=== PATIENT | female | born 2000 | race Caucasian/White ===

== ENCOUNTER 2023-10-09 18:40 | Emergency (ER) | payer OTHER ==
[2023-10-09] MEDS ORDERED: NA CHLORIDE 0.9% 1,000 ML ONE (19:16)
[2023-10-09] MEDS ORDERED: ACETAMINOPHEN 500 MG TAB ONE (19:16)
[2023-10-09 19:19] LABS: Absolute Eosinophils 0.1 K/uL (0-0.5); Absolute Lymphocytes (CBC) 1.9 K/uL (0.7-4.9); Absolute Monocytes 0.7 K/uL (0.1-1.3); Absolute Neutrophil 6.4 K/uL (1.8-8.0); Basophils % 0.5 % (0-1.3); Eosinophils % 1.4 % (0-4.4); Hemoglobin 11.9 g/dL (12.0-15.0); Lymphocytes % 21.2 % (15.3-44.8); MCH 31.2 pg (27.0-35.0); MCHC 35.1 g/dL (32.0-36.0); MCV 89.1 fL (80-100); MPV 9.5 fL (7.6-11.3); Monocytes % 7.6 % (3.3-12.3); Neutrophils % 69.3 % (41.7-73.7); Platelets 199 thou/uL (152-406); RBC Red Blood Cell Count 3.81 M/uL (3.86-4.86); Red Cell Distribution Width 13.6 % (12.1-15.2)
[2023-10-09 19:39] LABS: ALT/SGPT 17 U/L (13-56); Albumin/Globulin Ratio 0.7 (1.1-1.8); Alkaline Phosphatase 62 U/L (45-117); Anion Gap 10.3 mEq/L (5.0-15.0); BUN Blood Urea Nitrogen 14 mg/dL (7-18); Bicarbonate 22 mEq/L (21-32); Bilirubin Total 0.2 mg/dL (0.2-1.0); Globulin 4.1 g/dL (2.3-3.5); Glomerular Filtration Rate 129 ml/min (=/>90); Glucose Level 101 mg/dL (74-106); Potassium 3.3 mEq/L (3.5-5.1); Protein, Total 7.1 g/dL (6.4-8.2); Sodium Level 137 mEq/L (136-145)
[2023-10-09 19:40] LABS: AST/SGOT < 10 U/L (15-37)
[2023-10-09 20:04] LABS: Specific Gravity 1.027 (1.005-1.030); Urine Bacteria <20 /HPF (<20); Urine Bilirubin NEGATIVE (Negative); Urine Blood Negative (Negative); Urine Clarity Extremely Turbid (Clear); Urine Color Yellow (Yellow); Urine Culture Reflex Order NOT NEEDED; Urine Glucose NEGATIVE (Negative); Urine Ketones NEGATIVE (Negative); Urine Micro Reflex YN NO BILL MICROSCOPIC; Urine Mucus 3+ /HPF (None Seen); Urine Nitrite NEGATIVE (Negative); Urine Protein TRACE (Negative); Urine RBC <5 /HPF (None Seen); Urine Urobilinogen 1+ (Normal); Urine pH 7.5 (5.0-7.0)
[2023-10-09] MEDS ORDERED: ONDANSETRON 4 MG/2 ML VIAL ONE (21:00)
--- NOTE | 2023-10-09 21:43 | RAD REPORT ---
EXAM DESCRIPTION: US - OB Complete - 10/09/2023 9:31 pm CLINICAL HISTORY: back pain COMPARISON: No comparisons FINDINGS: A single breech presenting gestation is identified. Heart rate normal. heart rate me asured at 135 beats/minute. measurements are as follows: BPD:5.2 Centimeters 21 week 6 day HC:19.8 Centimeters 22 week 0 day AC:17.9 Centimeters 22 week 5 day HL:3.6 Centimeters 22 week 2 day FL:4 Centimeters 23 week 0 day The estimated gestational age (EGA) is 22 week 3 day with an YOEL of02/09/2024. Anterior placenta. No placenta previa. The amniotic fluid index is 10.3 cm, with largest pocket 3 cm. The maternal adnexa show no worrisome findings. IMPRESSION: 1. Single, breech gestation with an EGA of 22 week 3 day and an YOEL of the 02/09/2024. 2. Anterior placenta. No previa. 3. Amniotic fluid index is10.3, with largest pocket3 cm -- considered within normal limits.
--- NOTE | 2023-10-09 21:48 | EDPHYS ---
Physician Documentation [facility] Name: Elvira Kingsley Age: 23 yrs Sex: Female : 2000 Arrival Date: 10/09/2023 Time: 18:40 Bed 1 Private MD: ED Physician Drew Landeros HPI: 10/08 19:58 This 23 yrs old Female presents to ER via Ambulatory with complaints of 22 wks rt , Back Pain. 19:58 Patient presents to the ED with back pain. The patient is a G2, P1 at 22 weeks. Denies rt any uterine contractions but states that the back pain feels like contractions. Denies injury. Denies leakage of fluid, vaginal bleeding, urinary symptoms. Denies other acute complaints, symptoms are moderate in severity, no other aggravating or alleviating factors. 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 - Infectious Disease History:: Denies. - Social history:: Smoking status: Patient denies any tobacco usage or history of. - Family history:: not pertinent. ROS: 19:58 Constitutional: Negative for fever, chills, and weight loss, Cardiovascular: Negative rt for chest pain, palpitations, and edema, Respiratory: Negative for shortness of breath, cough, wheezing, and pleuritic chest pain, Abdomen/GI: Negative for abdominal pain, nausea, vomiting, diarrhea, and constipation, : Negative for injury, bleeding, discharge, and swelling, MS/Extremity: Negative for injury and deformity, Skin: Negative for injury, rash, and discoloration, 19:58 Back: Positive for pain at rest, pain with movement, Exam: 19:58 Constitutional: This is a well developed, well nourished patient who is awake, alert, rt and in no acute distress. Head/Face: Normocephalic, atraumatic. Chest/axilla: Normal chest wall appearance and motion. Nontender with no deformity. No lesions are appreciated. Cardiovascular: Regular rate and rhythm with a normal S1 and S2. No gallops, murmurs, or rubs. Normal PMI, no JVD. No pulse deficits. Respiratory: Lungs have equal breath sounds bilaterally, clear to auscultation and percussion. No rales, rhonchi or wheezes noted. No increased work of breathing, no retractions or nasal flaring. Skin: Warm, dry with normal turgor. Normal color with no rashes, no lesions, and no evidence of cellulitis. MS/ Extremity: Pulses equal, no cyanosis. Neurovascular intact. Full, normal range of motion. Neuro: Awake and alert, GCS 15, oriented to person, place, time, and situation. Cranial nerves II-XII grossly intact. Motor strength 5/5 in all extremities. Sensory grossly intact. Cerebellar exam normal. Normal gait. 19:58 Abdomen/GI: Abdomen is soft, nontender, nondistended, 19:58 Back: Mild tenderness to the lower lumbar paraspinal regions, no midline tenderness, no flank tenderness, Vital Signs: 18:48 BP 101 / 67; Pulse 77; Resp 18; Temp 98.6; Pulse Ox 98% ; Weight 73.94 kg; Height 5 ft. db 3 in. ; Pain 10/10; 19:25 BP 93 / 52; Pulse 60; Resp 18; Pulse Ox 99% on R/A; al5 20:51 BP 129 / 80; Pulse 75; Resp 18; Temp 98.6; Pulse Ox 99% ; Pain 7/10; bm8 22:01 BP 118 / 72; Pulse 69; Resp 16; Pulse Ox 100% on R/A; al5 18:48 Body Mass Index 28.87 (73.94 kg, 160.02 cm) db 18:48 Pain Scale: Adult db 20:51 Pain Scale: Adult bm8 Parish Coma Score: 20:51 Eye Response: spontaneous(4). Motor Response: obeys commands(6). Verbal Response: bm8 oriented(5). Total: 15. MDM: 18:54 Patient medically screened. rt 20:25 Data reviewed: vital signs. ED course: Patient signed up to the ER. Physician in brief ec2 arrives today for back pain and is 22 weeks . Plan is follow-up ultrasound. Likely discharge home. CBC reassuring, metabolic profile reassuring. Urine without bacteria . 10/08 19:02 Order name: CBC with Diff; Complete Time: 20:02 rt 10/08 19:02 Order name: CMP; Complete Time: 20: rt 10/08 19:02 Order name: UAM; Complete Time: 20:05 rt 10/08 19:02 Order name: US OB Complete; Complete Time: 21:47 rt Administered Medications: 19:24 Drug: NS 0.9% IV 1000 ml IV at 1 bolus Per protocol; 1000 mL bolus Route: IV; Rate: 1 al5 bolus; Site: right antecubital; 21:54 Follow up: Response: No adverse reaction; IV Status: Completed infusion; IV Intake: bm8 1000ml 19:24 Drug: Acetaminophen PO 1000 mg PO once Route: PO; al5 20:00 Follow up: Response: No adverse reaction; Pain is decreased al5 21:27 Drug: Ondansetron IVP 4 mg IVP once; over 2 minutes Route: IVP; Site: right antecubital;al5 21:27 Follow up: Response: No adverse reaction; Nausea is decreased al5 21:47 CANCELLED (Physician Discretion): [id number] mg PO once ec2 21:53 Drug: Cephalexin PO 500 mg PO once Route: PO; bm8 21:53 Follow up: Response: Medication Administered at Departure bm8 Disposition Summary: 10/09/23 21:47 Discharge Ordered Notes: Location: Home ec2 Condition: Stable ec2 Diagnosis - UTI/ Urinary tract infection, site not specified ec2 - Low back pain ec2 Followup: ec2 - With: Private Physician - When: - Reason: Re-evaluation by your physician Discharge Instructions: - Discharge Summary Sheet ec2 - Urinary Tract Infection, Adult, [id number] ec2 Forms: - Medication Reconciliation Form ec2 - Antibiotic Education ec2 - Prescription Opioid Use ec2 - Patient Portal Instructions ec2 - Leadership Thank You Letter ec2 - Work release form bm8 Prescriptions: - Cephalexin 500 mg Oral capsule - take 1 capsule ORAL route every 12 hours for 5 days; 10 capsule; Refills: 0, ec2 Product Selection Permitted Signatures: Dispatcher [employer] Deepali Marinelli, RN RN Kelechi Slade MD MD rt Drew Landeros MD MD ec2 Delon Argueta RN RN bm8 Pallavi Claudio RN RN al5 Corrections: (The following items were deleted from the chart) 21:47 21:47 Cephalexin PO 250 mg PO once ordered. ec2 ec2
--- NOTE | 2023-10-09 21:48 | ER ---
Nurse's Notes [facility] Name: Elvira Kingsley Age: 23 yrs Sex: Female : 2000 Arrival Date: 10/09/2023 Time: 18:40 Bed 1 Private MD: Diagnosis: UTI/ Urinary tract infection, site not specified;Low back pain Presentation: 10/08 18:48 Chief complaint: Patient states: 22 WEEKS STARTED WITH BACK PAIN LIKE db CONTRACTIONS X 30 MINUTES. . Coronavirus screen: Client denies travel out of the [place] in the last 14 days. At this time, the client does not indicate any symptoms associated with coronavirus-19. Ebola Screen: Patient negative for fever greater than or equal to 101.5 degrees Fahrenheit, and additional compatible Ebola Virus Disease symptoms Patient denies exposure to infectious person. Patient denies travel to an Ebola-affected area in the 21 days before illness onset. No symptoms or risks identified at this time. Initial Sepsis Screen: Does the patient meet any 2 criteria? No. Patient's initial sepsis screen is negative. Does the patient have a suspected source of infection? No. Patient's initial sepsis screen is negative. Risk Assessment: Do you want to hurt yourself or someone else? Patient reports no desire to harm self or others. Onset of symptoms was October 09, 2023. 18:48 Method Of Arrival: Ambulatory db 18:48 Acuity: GRANT 3 db Triage Assessment: 18:50 General: Appears in no apparent distress. uncomfortable, Behavior is cooperative, db appropriate for age. Pain: Complains of pain in abdomen, BACK. Neuro: Level of Consciousness is awake, alert, obeys commands, Oriented to person, place, time, situation. Respiratory: Airway is patent Respiratory effort is even, unlabored, Respiratory pattern is regular, symmetrical. Musculoskeletal: Capillary refill < 3 seconds. 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 - Infectious Disease History:: Denies. - Social history:: Smoking status: Patient denies any tobacco usage or history of. - Family history:: not pertinent. Screenin:58 [facility] ED Fall Risk Assessment (Adult) History of falling in the last 3 months, kc6 including since admission No falls in past 3 months (0 pts) Confusion or Disorientation No (0 pts) Intoxicated or Sedated No (0 pts) Impaired Gait No (0 pts) Mobility Assist Device Used No (0 pt) Altered Elimination No (0 pt) Score/Fall Risk Level 0 - 2 = Low Risk Oriented to surroundings. Abuse screen: Denies threats or abuse. Denies injuries from another. Nutritional screening: No deficits noted. Tuberculosis screening: No symptoms or risk factors identified. Assessment: 18:58 General: Appears in no apparent distress. uncomfortable, well groomed, well developed, kc6 Behavior is cooperative, crying. Pain: Complains of pain in back. Neuro: Level of Consciousness is awake, alert, obeys commands, Oriented to person, place, time, situation, Appropriate for age. Cardiovascular: Capillary refill < 3 seconds. Respiratory: Airway is patent Trachea midline Respiratory effort is even, unlabored, Respiratory pattern is regular, symmetrical. GI: Abdomen is round non-distended, Bowel sounds present X 4 quads. Abd is soft X 4 quads Reports nausea, vomiting, Patient currently denies abdominal pain, diarrhea. : No signs and/or symptoms were reported regarding the genitourinary system. Denies burning with urination, vaginal bleeding. EENT: No signs and/or symptoms were reported regarding the EENT system. Derm: No signs and/or symptoms reported regarding the dermatologic system. Skin is intact, is healthy with good turgor, Skin is pink, warm \\T\\ dry. Musculoskeletal: No signs and/or symptoms reported regarding the musculoskeletal system. Circulation, motion, and sensation intact. Capillary refill < 3 seconds, Range of motion: intact in all extremities. 19:24 General: Appears in no apparent distress. uncomfortable, Behavior is calm, cooperative. al5 Pain: Complains of pain in back and abdomen. Neuro: Level of Consciousness is awake, alert, obeys commands, Oriented to person, place, time, situation. Cardiovascular: Capillary refill < 3 seconds Patient's skin is warm and dry. Respiratory: Airway is patent Respiratory effort is even, unlabored, Respiratory pattern is regular, symmetrical. GI: Abdomen is round non-distended, patient 22 weeks Reports nausea. : No signs and/or symptoms were reported regarding the genitourinary system. EENT: No signs and/or symptoms were reported regarding the EENT system. Derm: Skin is intact, Skin is pink, warm \\T\\ dry. normal. Musculoskeletal: No signs and/or symptoms reported regarding the musculoskeletal system. 20:51 Reassessment: pt is c/o nausea, vomiting and "like some stomach pressure". Provider bm8 informed and awaitnig new orders. Vital Signs: 18:48 BP 101 / 67; Pulse 77; Resp 18; Temp 98.6; Pulse Ox 98% ; Weight 73.94 kg; Height 5 ft. db 3 in. ; Pain 10/10; 19:25 BP 93 / 52; Pulse 60; Resp 18; Pulse Ox 99% on R/A; al5 20:51 BP 129 / 80; Pulse 75; Resp 18; Temp 98.6; Pulse Ox 99% ; Pain 7/10; bm8 22:01 BP 118 / 72; Pulse 69; Resp 16; Pulse Ox 100% on R/A; al5 18:48 Body Mass Index 28.87 (73.94 kg, 160.02 cm) db 18:48 Pain Scale: Adult db 20:51 Pain Scale: Adult bm8 Ward Coma Score: 20:51 Eye Response: spontaneous(4). Motor Response: obeys commands(6). Verbal Response: bm8 oriented(5). Total: 15. ED Course: 18:43 Patient arrived in ED. mr 18:49 Triage completed. db 18:51 Arm band placed on Patient placed in an exam room. db 18:54 Kelechi Guidry MD is Attending Physician. rt 18:57 Patient has correct armband on for positive identification. Bed in low position. Call kc6 light in reach. Side rails up X 1. Adult w/ patient. Pulse ox on. NIBP on. Door closed. Noise minimized. Lights dimmed. Pillow given. 19:00 Report given to RAUL Jernigan \\T\\ RAUL Olivo. kc6 19:07 Initial lab(s) drawn, by ok, sent to lab. Inserted saline lock: 20 gauge in right cc6 antecubital area, using aseptic technique. Blood collected. Flushed with 10 mL NS. 19:12 Langhorst, Pallavi, RAUL is Primary Nurse. al5 20:02 Attending Physician role handed off by Kelechi Guidry MD ec2 20:02 Drew Landeros MD is Attending Physician. ec2 21:33 US OB Complete In Process Unspecified. EDMS 21:54 Provided Education on: post er care. bm8 21:54 No provider procedures requiring assistance completed. IV discontinued, intact, bm8 bleeding controlled, No redness/swelling at site. Pressure dressing applied. Administered Medications: 19:24 Drug: NS 0.9% IV 1000 ml IV at 1 bolus Per protocol; 1000 mL bolus Route: IV; Rate: 1 al5 bolus; Site: right antecubital; 21:54 Follow up: Response: No adverse reaction; IV Status: Completed infusion; IV Intake: bm8 1000ml 19:24 Drug: Acetaminophen PO 1000 mg PO once Route: PO; al5 20:00 Follow up: Response: No adverse reaction; Pain is decreased al5 21:27 Drug: Ondansetron IVP 4 mg IVP once; over 2 minutes Route: IVP; Site: right antecubital;al5 21:27 Follow up: Response: No adverse reaction; Nausea is decreased al5 21:47 CANCELLED (Physician Discretion): [id number] mg PO once ec2 21:53 Drug: Cephalexin PO 500 mg PO once Route: PO; bm8 21:53 Follow up: Response: Medication Administered at Departure bm8 Medication: 19:26 VIS not applicable for this client. al5 Intake: 21:54 IV: 1000ml; Total: 1000ml. bm8 Outcome: 21:47 Discharge ordered by . ec2 21:54 Discharged to home ambulatory, bm8 21:54 Condition: stable 21:54 Discharge instructions given to patient, family, Instructed on discharge instructions, follow up and referral plans. no drinking with medication, no driving heavy equipment, medication usage, safety practices, Demonstrated understanding of instructions, follow-up care, medications, Prescriptions given X 1, 22:02 Patient left the ED. al5 Signatures: Dispatcher [employer] EDNH Savita Oakley, Reg Reg mr Langston Brandie, RN RN kc6 Deepali Dickson, RN RN db Kelechi Guidry MD MD rt Drew Landeros MD MD ec2 Delon Argueta RN RN bm8 Pallavi Claudio, RN RN al5 Snow Arias cc6
[2023-10-09] MEDS ORDERED: CEPHALEXIN 250 MG CAP ONE (21:52)
[2023-10-09 22:16] VITALS: TEMP 98.6
[2023-10-09 22:21] VITALS: BP 118/72; O2SAT 100
== END 2023-10-09 22:02 | disposition home or self-care (01) ==
LOC: ER 18:40
DX: O23.42 Unspecified infection of urinary tract in pregnancy, second trimester (principal); N39.0 Urinary tract infection, site not specified; Z3A.22 22 weeks gestation of pregnancy
CPT/HCPCS: 96361; 96374; 99284